=== PATIENT | female | born 1965 | race African-American/Black ===

== ENCOUNTER 2019-03-15 22:12 | Emergency (ER) | payer MEDICARE, MEDICAID ==
[~2019-03-15] VITALS: Ht 167.6 cm; Wt 81.7 kg
[2019-03-15] MEDS ORDERED: SYNTHROID100 MC1 PO (22:29)
[2019-03-15] MEDS ORDERED: ENBREL50 MG/1 ML SUBQ (22:30)
[2019-03-15] MEDS ORDERED: BUSPIRONE HCL7.5 MG PO (22:31)
[2019-03-15] MEDS ORDERED: OSTERA TABLET1 EAC1 PO (22:31)
[2019-03-15] MEDS ORDERED: XANAX 0.5 MG0.5 M1 PO (23:16)
[2019-03-15 23:37] VITALS: BP 137/83
== END 2019-03-15 23:39 | disposition home or self-care (01) ==
LOC: M.ERS 22:12
DX: F41.9 Anxiety disorder, unspecified (principal); F32.9 Major depressive disorder, single episode, unspecified; M19.90 Unspecified osteoarthritis, unspecified site